=== PATIENT | female | born 1960 | race Caucasian/White ===

== ENCOUNTER → 2021-07-08 13:40 | Outpatient (CLI) | payer OTHER, SELFPAY | PROVIDERS: PCP Family Medicine; Visit Provider Nurse Practitioner | DX: Z20.822 Contact with and (suspected) exposure to COVID-19 (principal) | CPT/HCPCS: C9803; U0003; U0005 ==

== ENCOUNTER 2022-04-28 15:19 | Emergency (ER) | payer SELFPAY ==
[2022-04-28] VITALS (9 sets, daily range): BP systolic 149–213; BP diastolic 90–118; PULSE 61–76; RESP 18–20; TEMP 36.9; O2SAT 96–99; BMI 29.2
--- NOTE | 2022-04-28 15:40 | PC.NURSE ---
BLANKET OFFERED, LIGHTS OFF AND DOOR CLOSED. CALL LIGHT WITHIN REACH. NO NEEDS AT THIS TIME
[2022-04-28 15:54] LABS: Basophils # 0.2 K/mm3 (0-0.2); Basophils % 1.9 % (0.1-2.0); Eosinophils # 0.2 K/mm3 (0.0-0.4); Eosinophils % 2.3 % (0.1-12.0); Hematocrit 40.1 % (37.0-47.0); Hemoglobin 12.6 g/dL (12.2-16.2); Lymphocytes # 1.8 K/mm3 (0.7-4.5); Lymphocytes % 17.1 % (10-50); Mean Corpuscular HGB Conc 31.4 g/dL (31.8-35.4); Mean Platelet Volume 8.3 fl (7.4-10.4); Monocytes # 0.8 K/mm3 (0.1-1.0); Monocytes % 7.1 % (1.7-9.3); Neutrophils # 7.7 K/mm3 (1.8-7.8); Neutrophils % 71.7 % (37.0-80.0); Platelet Count 319 K/mm3 (142-424); Red Blood Count 3.93 M/mm3 (4.20-5.40); Red Cell Distribution Width 12.9 % (11.5-17.5); White Blood Count 10.7 K/mm3 (4.8-10.8)
[2022-04-28 15:55] LABS: Chloride 105 mmol/L (98-107); Potassium 4.2 mmoL/L (3.5-5.1); Sodium 140 mmol/L (136-145)
[2022-04-28 15:58] LABS: Anion Gap 12.2 mEq/L (5-15); Blood Urea Nitrogen 14 mg/dl (7-17); Calcium 9.9 mg/dl (8.4-10.2); Carbon Dioxide 27 mmol/L (22.0-30.0); Creatinine Clearance Estimated 91 mL/min (50-200); Estimated Glomerular Filt Rate 64 ml/min (>60); GFR (African American) 77 ML/MIN (>60); Glucose 107 mg/dl (74-100)
--- NOTE | 2022-04-28 16:07 | HMH.EDARPALP ---
ED Disposition Clinical Impression: Hypertension Qualifiers: Hypertension type: primary hypertension Qualified Code(s): I10 - Essential (primary) hypertension Disposition: Home, Self-Care Condition on Discharge: Good Instructions: Treatments for High Blood Pressure: More Than Just Taking a Pill Prescriptions: Metoprolol Succinate [Metoprolol Succinate 25mg Tablet*] 25 mg PO DAILY #3 tab Transmission Status: Pending to [facility] Referrals: Fifi Fitzgerald APRN [Nurse Practitioner] - - Critical Care Critical Care Time: No Attestation: On 04/28/22, the high probability of a clinically significant, sudden or life threatening deterioration of the following system(s) required my full and direct attention, intervention and personal management. The time I documented below is in addition to time spent performing reported procedures but includes the following listed in this critical care notation. Medical Decision Making - Medical Records Medical records reviewed: Yes: I reviewed the patient's medical records. - Joss Inquiry Pt receiving controlled substance: No Vital Signs: 04/28/22 15:22 04/28/22 15:29 04/28/22 15:54 Temperature 98.4 F Temperature Source Oral Pulse Rate 76 70 Pulse Rate [Brachial] 76 Respiratory Rate 18 18 18 Blood Pressure 213/118 H 162/113 H Blood Pressure [Right Arm] 213/118 H Blood Pressure Mean 174 150 Blood Pressure Mean [Right Arm] 149 Blood Pressure Source [Right Arm] Automatic Cuff Blood Pressure Position [Right Arm] Sitting 02 Sat by Pulse Oximetry 99 97 98 Oxygen Delivery Method Room Air 04/28/22 15:59 04/28/22 16:02 04/28/22 16:30 Temperature Temperature Source Pulse Rate 70 63 Pulse Rate [Brachial] Respiratory Rate 18 Blood Pressure 149/90 H 162/113 H 181/104 H Blood Pressure [Right Arm] Blood Pressure Mean 114 Blood Pressure Mean [Right Arm] Blood Pressure Source [Right Arm] Blood Pressure Position [Right Arm] 02 Sat by Pulse Oximetry 98 98 Oxygen Delivery Method - Lab Data Lab Results 04/28/22 15:30: WBC 10.7, RBC 3.93 L, Hgb 12.6, Hct 40.1, MCV 102.0 H, MCH 32.0 H, MCHC 31.4 L, RDW 12.9, Plt Count 319, MPV 8.3, Neut % (Auto) 71.7, Lymph % (Auto) 17.1, Tripp % (Auto) 7.1, Eos % (Auto) 2.3, Baso % (Auto) 1.9, Neut # (Auto) 7.7, Lymph # (Auto) 1.8, Tripp # (Auto) 0.8, Eos # (Auto) 0.2, Baso # (Auto) 0.2 04/28/22 15:30: Sodium 140, Potassium 4.2, Chloride 105, Carbon Dioxide 27, Anion Gap 12.2, BUN 14, Creatinine 0.90, Estimated Creat Clear 91, Estimated GFR 64, Est GFR ( Amer) 77, Glucose 107 H, Calcium 9.9 Result diagrams: 04/28/22 15:30 04/28/22 15:30 Orders (Tests/Meds): ED MEDICATIONS Discontinued Medications Generic Name Dose Route Start Last Admin Trade Name Freq PRN Reason Stop Dose Admin Labetalol HCl 20 mg 04/28/22 15:47 04/28/22 16:02 Labetalol 5mg/Ml 20ml Mdv IV 04/28/22 15:48 20 mg ONCE ONE Administration - Reevaluation(s) Time: 16:49 Reevaluation #1: On reevaluation, patient is feeling better. Blood pressure is improved. She states that she is getting refill for medications tomorrow. I will start her home antihypertensives. Given strict return precautions. Verbalized understanding. Medical Decision Narrative: 62-year-old female presented to the emergency department with elevated blood pressure. Patient is significantly hypertensive on presentation. Likely secondary to medication noncompliance. She is asymptomatic at this time. Work-up initiated. Arrhythmia/Palpitations HPI - General Chief Complaint: Arrhythmia/Palpitations Stated Complaint: High Blood Pressure Time Seen by Provider: 04/28/22 15:30 Mode of Arrival: Ambulatory Limitations: No Limitations - History of Present Illness HPI narrative: This is a 62-year-old female presented to the emergency department with some elevated blood pressure. Patient states that she has a longstand
--- NOTE | 2022-04-28 17:13 | PC.NURSE ---
PT MEDICATED AT THIS TIME. RESTING WITH EYES CLOSED. NO NEEDS VOICED. CALL LIGHT WITHIN REACH
--- NOTE | 2022-04-28 17:36 | PC.NURSE ---
pt has her b/p meds at the pharmacy to [facility]
== END 2022-04-28 17:40 | disposition home or self-care (01) ==
PROVIDERS: Emergency Provider Emergency Medicine; PCP Family Medicine
DX: I10 Essential (primary) hypertension (principal); Z91.14 Patient's other noncompliance with medication regimen
CPT/HCPCS: 80048; 85025; 96374; 99284